=== PATIENT | female | born 1950 | race Caucasian/White ===

== ENCOUNTER 2020-10-01 15:27 | Inpatient (IN) | payer MEDICARE, MEDICAID ==
[~2020-10-01] VITALS: Ht 160 cm; Wt 62.8 kg
[2020-10-01] MEDS ORDERED: SODIUM CHLORIDE 0.9% 1,000 ML IV ONE ×3 (15:45)
[2020-10-01 18:12] LABS: Eosinophils # (auto) 0.3 10 ^3/uL (0-0.8); Eosinophils % (auto) 2.6 % (0.0-7.0); Hemoglobin 11.5 g/dL (12.2-16.2); Lymphocytes # (auto) 2.1 10 ^3/uL (0.4-5.4); Monocytes # (auto) 0.5 10 ^3/uL (0-1.3); Monocytes % (auto) 4.4 % (0.0-12.0)
[2020-10-01 18:14] LABS: Anion Gap 6 (5-15); Basophils # (auto) 0.1 10 ^3/uL (0-0.2); Basophils % (auto) 1.2 % (0.0-2.0); Blood Urea Nitrogen 11 mg/dL (7-18); Carbon Dioxide 25 mmol/L (21-32); Chloride 108 mmol/L (98-107); Glucose 80 mg/dL (74-106); Lymphocytes % (auto) 18.5 % (10.0-50.0); Mean Corpuscular Hgb Conc. 33.9 g/dL (32.0-36.0); Mean Corpuscular Volume 88.4 fL (80.0-100.0); Neutrophils # (auto) 8.3 10 ^3/uL (1.6-8.6); Neutrophils % (auto) 73.3 % (37.0-80.0); Nucleated Red Blood Cells % 0.1 %; Potassium 3.7 mmol/L (3.5-5.1); Red Blood Cells 3.84 10^6/uL (4.0-5.20); Red Cell Distribution Width 17.1 % (11.8-14.3); Sodium 139 mmol/L (136-145); White Blood Cell 11.3 10^3/uL (4.4-10.8)
[2020-10-01 18:19] LABS: Alanine Aminotransferase 16 U/L (13-56); Alkaline Phosphatase 91 U/L (45-117); Aspartate Aminotransferase 16 U/L (15-37); BUN/Creatinine Ratio 12.1; Bilirubin, Total 0.4 mg/dL (0.2-1.0); GFR African American 79 mL/min; GFR Non-African American 65 mL/min; Total Protein 6.7 g/dL (6.4-8.2)
[2020-10-01] MEDS ORDERED: ONDANSETRON HCL 4 MG/2 ML VIAL IV ONE (21:00)
[2020-10-01] MEDS ORDERED: MORPHINE SULFATE 4 MG/ML SYR/VIAL IV ONE (21:00)
[2020-10-01] MEDS ORDERED: MORPHINE SULFATE INJECTION 2 MG/ML SYRG IV PRN (22:30)
[2020-10-01] MEDS ORDERED: DOCUSATE SOD 100 MG CAP PO PRN (22:30)
[2020-10-01] MEDS ORDERED: ACETAMINOPHEN 325 MG TAB PO PRN (22:30)
[2020-10-01] MEDS ORDERED: hydrALAZINE HCL 20 MG/ML VL IV PRN (22:30)
[2020-10-01] MEDS ORDERED: ONDANSETRON HCL 4 MG/2 ML VIAL IV PRN (22:30)
[2020-10-01] MEDS ORDERED: NITROGLYCERIN 0.4 MG SL TAB SL PRN (22:30)
[2020-10-02] MEDS: MORPHINE SULFATE INJECTION 2 MG/ML SYRG IV PRN ×2 (01:18→08:11)
[2020-10-02 01:48] VITALS: BP 142/57
[2020-10-02 05:00] VITALS: BP 145/69
[2020-10-02] MEDS ORDERED: TICA90TA PO (05:21)
[2020-10-02] MEDS ORDERED: TRAZ50TA2 PO (05:21)
[2020-10-02] MEDS ORDERED: HYDR500C PO (05:21)
[2020-10-02] MEDS ORDERED: GABA-339 PO (05:21)
[2020-10-02] MEDS ORDERED: TRAZ100T3 PO (05:21)
[2020-10-02] MEDS ORDERED: METO25TA93 PO (05:21)
[2020-10-02] MEDS ORDERED: ASPI-543 PO (05:21)
[2020-10-02] MEDS ORDERED: LORA-622 PO (05:21)
[2020-10-02] MEDS ORDERED: ATO40T PO (05:21)
[2020-10-02] MEDS: SODIUM CHLOR 0.9% PF (SALINE LOCK) 10ML VIAL/SYR IV SCH ×3 (06:16→21:16)
[2020-10-02 06:36] LABS: Basophils # (auto) 0.1 10 ^3/uL (0-0.2); Eosinophils # (auto) 0.4 10 ^3/uL (0-0.8); Mean Corpuscular Volume 87.5 fL (80.0-100.0); Monocytes # (auto) 0.5 10 ^3/uL (0-1.3); Nucleated Red Blood Cells % 0.1 %
[2020-10-02 06:41] LABS: Eosinophils % (auto) 3.6 % (0.0-7.0); Hematocrit 35.9 % (36.0-46.0); Hemoglobin 12.5 g/dL (12.2-16.2); Mean Corpuscular Hemoglobin 30.4 pg (28.0-32.0); Mean Corpuscular Hgb Conc. 34.7 g/dL (32.0-36.0); Monocytes % (auto) 4.6 % (0.0-12.0); Neutrophils # (auto) 7.2 10 ^3/uL (1.6-8.6); Neutrophils % (auto) 70.8 % (37.0-80.0); Red Blood Cells 4.11 10^6/uL (4.0-5.20); Red Cell Distribution Width 17.5 % (11.8-14.3); White Blood Cell 10.2 10^3/uL (4.4-10.8)
[2020-10-02 07:15] LABS: BUN/Creatinine Ratio 18.5; Calcium 8.4 mg/dL (8.5-10.1)
[2020-10-02 07:17] LABS: Bilirubin, Total 0.3 mg/dL (0.2-1.0); Total Protein 6.8 g/dL (6.4-8.2)
[2020-10-02] MEDS ORDERED: cefTRIAXone 1GM/50ML D5W 50 ML IV SCH (09:00)
[2020-10-02] MEDS ORDERED: ZINC SULFATE 220mg CAP or TAB PO SCH (10:00)
[2020-10-02] MEDS ORDERED: FAMOTIDINE (10MG/ML) 2ML VL IV SCH (10:00)
[2020-10-02] MEDS ORDERED: ASCORBIC ACID 500 MG TAB PO SCH (10:00)
[2020-10-02] MEDS: ENOXAPARIN SOD 40 MG/0.4 ML SYRINGE SC SCH (10:02)
[2020-10-02] MEDS: MULTIPLE VITAMIN TAB PO SCH (10:02)
[2020-10-02 10:08] VITALS: BP 119/88
[2020-10-02 16:47] VITALS: BP 154/71
[2020-10-02 18:16] LABS: Urine WBC None Seen /hpf (0 - 5)
[2020-10-02 18:27] LABS: Urine Bacteria NONE SEEN /hpf (None Seen); Urine Blood Negative /uL (Negative)
[2020-10-02] MEDS: HYDROcodone-ACET 5/325MG TAB PO PRN (18:32)
[2020-10-02] MEDS: hydroxyUREA 500 MG CAP PO SCH (21:16)
[2020-10-02 22:00] VITALS: BP 157/87
[2020-10-03] MEDS: HYDROcodone-ACET 5/325MG TAB PO PRN ×3 (00:24→09:58)
[2020-10-03 05:00] VITALS: BP 108/69
[2020-10-03] MEDS: SODIUM CHLOR 0.9% PF (SALINE LOCK) 10ML VIAL/SYR IV SCH (05:32)
[2020-10-03 09:00] VITALS: BP 139/72
[2020-10-03] MEDS: hydroxyUREA 500 MG CAP PO SCH (09:53)
[2020-10-03] MEDS: MULTIPLE VITAMIN TAB PO SCH (09:53)
[2020-10-03] MEDS: ENOXAPARIN SOD 40 MG/0.4 ML SYRINGE SC SCH (09:59)
[2020-10-03 11:27] VITALS: BP 139/72
[2020-10-03 12:52] VITALS: BP 146/77
== END 2020-10-03 13:00 | disposition home or self-care (01) | DRG 563 ==
LOC: ER 15:27 → EDBD 15:27 → OVERFLOW 22:24 → CENTRAL 23:19
PROVIDERS: ADMIT Nurse Practitioner Family; ATTEND Internal Medicine
PROC: 2W3HX1Z Immobilization of Left Thumb using Splint (ICD-10-PCS; principal; 2020-10-03)
DX: S82.832A Other fracture of upper and lower end of left fibula, initial encounter for closed fracture (principal); C94.6 Myelodysplastic disease, not elsewhere classified; R55 Syncope and collapse; S62.502A Fracture of unspecified phalanx of left thumb, initial encounter for closed fracture; E88.09 Other disorders of plasma-protein metabolism, not elsewhere classified; F17.210 Nicotine dependence, cigarettes, uncomplicated; I10 Essential (primary) hypertension; Z20.822 Contact with and (suspected) exposure to COVID-19; I25.10 Atherosclerotic heart disease of native coronary artery without angina pectoris; W18.39XA Other fall on same level, initial encounter; Z95.5 Presence of coronary angioplasty implant and graft; Y93.89 Activity, other specified; Y92.89 Other specified places as the place of occurrence of the external cause; Y99.8 Other external cause status
CPT/HCPCS: 36415; 70450; 71045; 73100; 73130; 73610; 73620; 80053; 81001; 84484; 85025; 87426; 93005; 93306; 96361; 96374; 96375; 99291; G0378; J0696; J2405; J3490

== ENCOUNTER 2021-07-22 08:12 | Emergency (ER) | payer OTHER, MEDICAID ==
[~2021-07-22] VITALS: Ht 160 cm; Wt 56.7 kg
[~2021-07-22 08:12] MED LIST: ASPI-543 PO; ATO40T PO; GABA-339 PO; HYDR500C PO; LORA-622 PO; METO25TA93 PO; TICA90TA PO; TRAZ100T3 PO; TRAZ50TA2 PO
[2021-07-22] MEDS ORDERED: ceFAZolin 1GM/50ML 50 ML IV ONE (09:30)
[2021-07-22] MEDS ORDERED: LIDOCAINE 1% (LOCAL ANESTH.) PF 5ml SDV ID ONE (09:30)
[2021-07-22 09:44] LABS: Eosinophils # (auto) 0.1 10 ^3/uL (0-0.8); Mean Corpuscular Hgb Conc. 32.9 g/dL (32.0-36.0); Red Blood Cells 4.24 10^6/uL (4.0-5.20); Red Cell Distribution Width 14.8 % (11.8-14.3)
[2021-07-22 09:46] LABS: Basophils # (auto) 0.2 10 ^3/uL (0-0.2); Basophils % (auto) 0.9 % (0.0-2.0); Eosinophils % (auto) 0.6 % (0.0-7.0); Hematocrit 39.5 % (36.0-46.0); Lymphocytes # (auto) 2.3 10 ^3/uL (0.4-5.4); Lymphocytes % (auto) 12.3 % (10.0-50.0); Mean Corpuscular Hemoglobin 30.6 pg (28.0-32.0); Mean Corpuscular Volume 93.2 fL (80.0-100.0); Monocytes # (auto) 0.8 10 ^3/uL (0-1.3); Monocytes % (auto) 4.4 % (0.0-12.0); Neutrophils # (auto) 15.3 10 ^3/uL (1.6-8.6); Neutrophils % (auto) 81.8 % (37.0-80.0); White Blood Cell 18.7 10^3/uL (4.4-10.8)
[2021-07-22 10:05] LABS: INR 1.06 (0.9-1.15); Partial Thromboplastin Time 26.3 sec (23.6-33.0)
[2021-07-22] MEDS ORDERED: ONDANSETRON HCL 4 MG/2 ML VIAL IV ONE (10:15)
[2021-07-22] MEDS ORDERED: MORPHINE SULFATE 4 MG/ML SYR/VIAL IV ONE (10:15)
[2021-07-22] MEDS ORDERED: TETANUS-DIPTH-ACEL PERTUSSIS 0.5ML SYR Tdap IM ONE (10:45)
[2021-07-22] MEDS ORDERED: AMOX500T86 PO (11:13)
[2021-07-22 11:45] VITALS: BP 133/56
== END 2021-07-22 11:58 | disposition left against medical advice (07) ==
LOC: ER 08:12
DX: S01.81XA Laceration without foreign body of other part of head, initial encounter (principal); S01.85XA Open bite of other part of head, initial encounter; K04.7 Periapical abscess without sinus; I10 Essential (primary) hypertension; I25.2 Old myocardial infarction; Z90.49 Acquired absence of other specified parts of digestive tract; Z90.710 Acquired absence of both cervix and uterus; Z90.89 Acquired absence of other organs; Z79.82 Long term (current) use of aspirin; Z79.2 Long term (current) use of antibiotics; Z79.899 Other long term (current) drug therapy; W54.0XXA Bitten by dog, initial encounter; Y93.89 Activity, other specified; Y92.89 Other specified places as the place of occurrence of the external cause; Y99.8 Other external cause status
CPT/HCPCS: 12014; 36415; 70486; 85025; 85610; 85730; 90471; 90715; 96365; 96375; 99285; J0690; J2270; J2405

== ENCOUNTER 2021-08-24 11:49 | Emergency (ER) | payer OTHER, MEDICAID ==
[~2021-08-24] VITALS: Ht 160 cm; Wt 125.0 kg
[~2021-08-24 11:49] MED LIST changes: +AMOX500T86 PO
[2021-08-24] MEDS ORDERED: SODIUM CHLORIDE 0.9% 1,000 ML IV ONE (12:45)
[2021-08-24 13:42] LABS: Basophils # (auto) 0.2 10 ^3/uL (0-0.2); Basophils % (auto) 1.2 % (0.0-2.0); Lymphocytes # (auto) 1.8 10 ^3/uL (0.4-5.4); Monocytes # (auto) 1.1 10 ^3/uL (0-1.3); Neutrophils % (auto) 80.5 % (37.0-80.0)
[2021-08-24 13:45] LABS: Eosinophils # (auto) 0.3 10 ^3/uL (0-0.8); Eosinophils % (auto) 1.6 % (0.0-7.0); Hematocrit 37.7 % (36.0-46.0); Lymphocytes % (auto) 10.3 % (10.0-50.0); Mean Corpuscular Hemoglobin 28.4 pg (28.0-32.0); Mean Corpuscular Hgb Conc. 31.9 g/dL (32.0-36.0); Mean Corpuscular Volume 89.2 fL (80.0-100.0); Monocytes % (auto) 6.4 % (0.0-12.0); Neutrophils # (auto) 13.8 10 ^3/uL (1.6-8.6); Red Blood Cells 4.22 10^6/uL (4.0-5.20); Red Cell Distribution Width 15.3 % (11.8-14.3); White Blood Cell 17.1 10^3/uL (4.4-10.8)
[2021-08-24 14:01] LABS: Albumin 3.4 g/dL (3.4-5.0); Calcium 8.5 mg/dL (8.5-10.1); Potassium 3.9 mmol/L (3.5-5.1)
[2021-08-24 14:06] LABS: BUN/Creatinine Ratio 14.1; Bilirubin, Total 0.7 mg/dL (0.2-1.0)
[2021-08-24 14:08] LABS: INR 1.03 (0.9-1.15); Partial Thromboplastin Time 29.2 sec (24.6-33.4)
[2021-08-24] MEDS ORDERED: HYDR-4902 PO (15:08)
[2021-08-24] MEDS ORDERED: ONDANSETRON HCL 4 MG/2 ML VIAL IV ONE (15:15)
[2021-08-24] MEDS ORDERED: MORPHINE SULFATE 4 MG/ML SYR/VIAL IV ONE (15:15)
[2021-08-24 16:04] VITALS: BP 136/84
== END 2021-08-24 16:05 | disposition home or self-care (01) ==
LOC: ER 11:49
DX: S82.52XA Displaced fracture of medial malleolus of left tibia, initial encounter for closed fracture (principal); R55 Syncope and collapse; I10 Essential (primary) hypertension; I25.2 Old myocardial infarction; I25.10 Atherosclerotic heart disease of native coronary artery without angina pectoris; Z90.49 Acquired absence of other specified parts of digestive tract; Z90.710 Acquired absence of both cervix and uterus; Z90.89 Acquired absence of other organs; Z79.82 Long term (current) use of aspirin; Z79.2 Long term (current) use of antibiotics; Z79.899 Other long term (current) drug therapy; W18.39XA Other fall on same level, initial encounter; Y93.89 Activity, other specified; Y92.89 Other specified places as the place of occurrence of the external cause; Y99.8 Other external cause status
CPT/HCPCS: 29515; 36415; 71046; 73600; 80053; 83735; 85025; 85610; 85730; 96361; 96374; 96375; 99284; J2270; J2405; J7030

== ENCOUNTER 2021-08-26 07:53 | Inpatient (IN) | payer OTHER, MEDICAID ==
[~2021-08-26] VITALS: Ht 160 cm; Wt 64.0 kg
[~2021-08-26 07:53] MED LIST changes: +HYDR-4902 PO
[2021-08-26 08:58] LABS: Mean Corpuscular Hgb Conc. 32.3 g/dL (32.0-36.0)
[2021-08-26 09:00] LABS: Hematocrit 36.7 % (36.0-46.0); Hemoglobin 11.9 g/dL (12.2-16.2); Mean Corpuscular Hemoglobin 28.8 pg (28.0-32.0); Mean Corpuscular Volume 89.3 fL (80.0-100.0); Red Blood Cells 4.11 10^6/uL (4.0-5.20); Red Cell Distribution Width 15.4 % (11.8-14.3); White Blood Cell 16.7 10^3/uL (4.4-10.8)
[2021-08-26 09:11] LABS: Band Neutrophils % (manual) 0; Basophils % (manual) 0 (0.0-2.0); Blast Cells 0; Metamyelocytes % 0; Myelocytes % 0; Promyelocytes % 0; Reactive Lymphocytes 0
[2021-08-26 09:12] LABS: INR 0.99 (0.9-1.15); Partial Thromboplastin Time 28.1 sec (24.6-33.4)
[2021-08-26 09:17] LABS: Eosinophils % (manual) 3 (0-7); Lymphocytes % (manual) 8 (10.0-50.0); Monocytes % (manual) 9 (0-12)
[2021-08-26 11:28] LABS: Albumin 3.3 g/dL (3.4-5.0); BUN/Creatinine Ratio 12.8; Calcium 9.1 mg/dL (8.5-10.1); Potassium 4.4 mmol/L (3.5-5.1)
[2021-08-26 11:31] LABS: Bilirubin, Total 0.5 mg/dL (0.2-1.0); Total Protein 7.2 g/dL (6.4-8.2)
[2021-08-26] MEDS ORDERED: IOHEXOL 350 MG/ML 100ML IJ ONE (11:40)
[2021-08-26] MEDS ORDERED: LORazepam 2MG/ML-1ML VIAL IV ONE (12:45)
[2021-08-26] MEDS ORDERED: ALPRAZolam 0.5 MG TAB PO ONE (13:00)
[2021-08-26] MEDS ORDERED: ONDANSETRON HCL 4 MG/2 ML VIAL IV ONE (15:45)
[2021-08-26] MEDS ORDERED: MORPHINE SULFATE 4 MG/ML SYR/VIAL IV ONE (15:45)
[2021-08-26] MEDS ORDERED: ONDANSETRON HCL 4 MG/2 ML VIAL IV PRN (17:15)
[2021-08-26] MEDS ORDERED: ACETAMINOPHEN 325 MG TAB PO PRN (17:15)
[2021-08-26] MEDS ORDERED: DOCUSATE SOD 100 MG CAP PO PRN (17:15)
[2021-08-26] MEDS ORDERED: MORPHINE SULFATE INJ 2 MG/ml SYRG IV PRN (17:15)
[2021-08-26] MEDS ORDERED: HYDROmorphone HCL 2 MG/ML VL/or syr IV PRN (17:15)
[2021-08-26] MEDS ORDERED: NITROGLYCERIN 0.4 MG SL TAB SL PRN (17:15)
[2021-08-26] MEDS: cefTRIAXone 1GM/50ML D5W 50 ML IV SCH (17:45)
[2021-08-26] MEDS: AZITHROMYCIN 500MG/ 250ML 250 ML IV SCH (18:10)
[2021-08-26 21:38] VITALS: BP 125/68
[2021-08-26] MEDS: SODIUM CHLOR 0.9% PF (SALINE LOCK) 10ML VIAL/SYR IV SCH (22:01)
[2021-08-26 22:21] LABS: Urine Bacteria NONE SEEN /hpf (None Seen); Urine Blood Negative /uL (Negative); Urine Specific Gravity 1.034 (1.001-1.035); Urine WBC 19 /hpf (0 - 5)
[2021-08-27] MEDS: SODIUM CHLOR 0.9% PF (SALINE LOCK) 10ML VIAL/SYR IV SCH ×3 (05:32→20:07)
[2021-08-27 08:58] VITALS: BP 148/76
[2021-08-27] MEDS: cefTRIAXone 1GM/50ML D5W 50 ML IV SCH (10:09)
[2021-08-27] MEDS ORDERED: FLUO20CA90 PO (10:30)
[2021-08-27] MEDS ORDERED: BACL10TA PO (10:30)
[2021-08-27] MEDS ORDERED: OXYC-963 (10:30)
[2021-08-27] MEDS: OXYCODONE W/ ACETAMINOPHEN 5/325MG TABLET PO PRN ×2 (11:14→19:57)
[2021-08-27] MEDS: AZITHROMYCIN 500MG/ 250ML 250 ML IV SCH (11:14)
[2021-08-27 13:00] VITALS: BP 142/79
[2021-08-27 13:32] LABS: Basophils # (auto) 0.1 10 ^3/uL (0-0.2); Basophils % (auto) 0.4 % (0.0-2.0); Eosinophils # (auto) 0.1 10 ^3/uL (0-0.8); Eosinophils % (auto) 0.6 % (0.0-7.0); Lymphocytes # (auto) 1.3 10 ^3/uL (0.4-5.4); Monocytes # (auto) 0.8 10 ^3/uL (0-1.3)
[2021-08-27 13:35] LABS: Hematocrit 38.3 % (36.0-46.0); Hemoglobin 12.3 g/dL (12.2-16.2); Lymphocytes % (auto) 7.4 % (10.0-50.0); Mean Corpuscular Hemoglobin 28.5 pg (28.0-32.0); Mean Corpuscular Hgb Conc. 32.1 g/dL (32.0-36.0); Monocytes % (auto) 4.3 % (0.0-12.0); Neutrophils # (auto) 15.9 10 ^3/uL (1.6-8.6); Neutrophils % (auto) 87.3 % (37.0-80.0); Red Cell Distribution Width 15.6 % (11.8-14.3); White Blood Cell 18.2 10^3/uL (4.4-10.8)
[2021-08-27 17:00] VITALS: BP 159/90
[2021-08-27] MEDS ORDERED: ASPirin 81 mg TAB PO ONE (17:30)
[2021-08-27] MEDS: METOPROLOL TARTRATE 25 MG TAB PO SCH (17:59)
[2021-08-27 21:49] VITALS: BP 158/79
[2021-08-28 04:46] VITALS: BP 153/84
[2021-08-28] MEDS: SODIUM CHLOR 0.9% PF (SALINE LOCK) 10ML VIAL/SYR IV SCH (05:56)
[2021-08-28] MEDS: OXYCODONE W/ ACETAMINOPHEN 5/325MG TABLET PO PRN (06:21)
[2021-08-28 07:10] LABS: Basophils # (auto) 0.1 10 ^3/uL (0-0.2); Hemoglobin 12.4 g/dL (12.2-16.2); Lymphocytes # (auto) 1.7 10 ^3/uL (0.4-5.4); Red Cell Distribution Width 15.4 % (11.8-14.3); White Blood Cell 16.8 10^3/uL (4.4-10.8)
[2021-08-28 07:15] LABS: Basophils % (auto) 0.9 % (0.0-2.0); Eosinophils # (auto) 0.4 10 ^3/uL (0-0.8); Eosinophils % (auto) 2.2 % (0.0-7.0); Hematocrit 37.8 % (36.0-46.0); Mean Corpuscular Hgb Conc. 32.7 g/dL (32.0-36.0); Mean Corpuscular Volume 88.6 fL (80.0-100.0); Monocytes # (auto) 0.7 10 ^3/uL (0-1.3); Monocytes % (auto) 4.3 % (0.0-12.0); Neutrophils # (auto) 13.9 10 ^3/uL (1.6-8.6); Neutrophils % (auto) 82.6 % (37.0-80.0); Red Blood Cells 4.27 10^6/uL (4.0-5.20)
[2021-08-28 07:16] LABS: BUN/Creatinine Ratio 17.9; Calcium 9.4 mg/dL (8.5-10.1); Magnesium 2.2 mg/dL (1.6-2.6); Potassium 5.4 mmol/L (3.5-5.1)
[2021-08-28 09:00] VITALS: BP 161/69
[2021-08-28] MEDS ORDERED: ASPirin 81 mg TAB PO SCH (10:00)
[2021-08-28] MEDS: METOPROLOL TARTRATE 25 MG TAB PO SCH (10:34)
[2021-08-28] MEDS: cefTRIAXone 1GM/50ML D5W 50 ML IV SCH (10:35)
[2021-08-28 13:00] VITALS: BP 167/87
[2021-08-28] MEDS: AZITHROMYCIN 500MG/ 250ML 250 ML IV SCH (13:08)
== END 2021-08-28 13:45 | disposition left against medical advice (07) | DRG 194 ==
LOC: ER 07:53 → TELE 17:15 → TELE-CENTR 21:45
PROVIDERS: ADMIT Internal Medicine; ATTEND Internal Medicine
DX: J18.9 Pneumonia, unspecified organism (principal); C92.10 Chronic myeloid leukemia, BCR/ABL-positive, not having achieved remission; D75.839 Thrombocytosis, unspecified; J43.9 Emphysema, unspecified; S82.842A Displaced bimalleolar fracture of left lower leg, initial encounter for closed fracture; Z20.822 Contact with and (suspected) exposure to COVID-19; Z53.29 Procedure and treatment not carried out because of patient's decision for other reasons; I50.9 Heart failure, unspecified; W18.39XA Other fall on same level, initial encounter; I25.10 Atherosclerotic heart disease of native coronary artery without angina pectoris; I11.0 Hypertensive heart disease with heart failure; I25.2 Old myocardial infarction; Z82.0 Family history of epilepsy and other diseases of the nervous system; Z86.711 Personal history of pulmonary embolism; Z87.891 Personal history of nicotine dependence; Z90.710 Acquired absence of both cervix and uterus; Z90.49 Acquired absence of other specified parts of digestive tract; Y93.89 Activity, other specified; Y92.89 Other specified places as the place of occurrence of the external cause; Y99.8 Other external cause status
CPT/HCPCS: 36415; 71045; 71275; 80048; 80053; 81001; 83735; 83880; 84484; 85007; 85025; 85027; 85379; 85610; 85730; 87040; 87070; 87077; 87186; 87205; 93005; 93306; 96365; 96368; 96375; 97163; G0378; J0696; J2405

== ENCOUNTER → 2022-06-27 | Outpatient (CLI) | payer OTHER, MEDICAID ==
[~2022-06-27] MED LIST changes: -AMOX500T86 PO; +BACL10TA PO; +FLUO20CA90 PO; +OXYC-963; -TRAZ100T3 PO
[2022-06-27 12:12] LABS: Mean Corpuscular Hemoglobin 25.2 pg (28.0-32.0); Red Cell Distribution Width 19.8 % (11.8-14.3)
[2022-06-27 12:14] LABS: Basophils # (auto) 0.2 10 ^3/uL (0-0.2); Basophils % (auto) 1.5 % (0.0-2.0); Eosinophils # (auto) 0.5 10 ^3/uL (0-0.8); Eosinophils % (auto) 3.5 % (0.0-7.0); Hematocrit 46.9 % (36.0-46.0); Hemoglobin 15.3 g/dL (12.2-16.2); Lymphocytes # (auto) 1.7 10 ^3/uL (0.4-5.4); Lymphocytes % (auto) 10.9 % (10.0-50.0); Mean Corpuscular Hgb Conc. 32.6 g/dL (32.0-36.0); Mean Corpuscular Volume 77.1 fL (80.0-100.0); Monocytes # (auto) 0.6 10 ^3/uL (0-1.3); Monocytes % (auto) 3.9 % (0.0-12.0); Neutrophils # (auto) 12.1 10 ^3/uL (1.6-8.6); Neutrophils % (auto) 80.2 % (37.0-80.0); Red Blood Cells 6.08 10^6/uL (4.0-5.20); White Blood Cell 15.1 10^3/uL (4.4-10.8)
[2022-06-27 13:42] LABS: Potassium 4.3 mmol/L (3.5-5.1)
[2022-06-27 13:47] LABS: Free T4 (Free Thyroxine) 0.7 ng/dL (0.89-1.76)
[2022-06-27 14:04] LABS: BUN/Creatinine Ratio 11.2 (10.0-20.0); Bilirubin, Total 0.4 mg/dL (0.2-1.0); CRP High Sensitivity 0.46 mg/dL (< 0.3); Calcium 9.4 mg/dL (8.5-10.1); Phosphorus 3.6 mg/dL (2.5-4.90); Total Protein 7.8 g/dL (6.4-8.2)
== END | disposition home or self-care (01) ==
LOC: LAB 11:30
PROVIDERS: ATTEND Internal Medicine
DX: I10 Essential (primary) hypertension (principal); Z79.899 Other long term (current) drug therapy
CPT/HCPCS: 36415; 80053; 80061; 80069; 82306; 82607; 83036; 84439; 84443; 85025; 85652; 86141; 86200

== ENCOUNTER 2023-07-09 20:37 | Emergency (ER) | payer OTHER, MEDICAID ==
[~2023-07-09] VITALS: Ht 160 cm; Wt 62.2 kg
[~2023-07-09 20:37] MED LIST changes: -ATO40T PO; +ATOR-507 PO; -HYDR500C PO; +HYDR500C3 PO; +TRAZ-227 PO; -TRAZ50TA2 PO
[2023-07-09] MEDS ORDERED: MORP15TA PO (21:32)
[2023-07-09 22:30] VITALS: PULSE 97; RESP 20; TEMP 98.4; O2SAT 96
[2023-07-09 22:37] VITALS: BP 156/95; PULSE 97; RESP 20
[2023-07-09] MEDS: MORPHINE SULFATE 4 MG/ML SYR/VIAL IM ONE (22:37)
== END 2023-07-09 22:44 | disposition home or self-care (01) ==
LOC: ER 20:37
DX: F11.93 Opioid use, unspecified with withdrawal (principal); I10 Essential (primary) hypertension; I25.10 Atherosclerotic heart disease of native coronary artery without angina pectoris; I25.2 Old myocardial infarction; Z85.9 Personal history of malignant neoplasm, unspecified; Z98.890 Other specified postprocedural states; Z79.899 Other long term (current) drug therapy
CPT/HCPCS: 96372; 99283; J2270

== ENCOUNTER 2024-02-05 03:42 | Inpatient (IN) | payer OTHER, MEDICAID ==
[~2024-02-05] VITALS: Ht 162.6 cm; Wt 61.5 kg
[~2024-02-05 03:42] MED LIST changes: +FLUO-470 PO; -FLUO20CA90 PO; +MORP15TA PO
--- NOTE | 2024-02-05 04:05 | ECG ---
[facility] Test Date: 2024-02-05 Test Time: 03:49:23 Pat Name: RAMESH LEHMAN Department: ER Room: Gender: F Rackman: TEE : 1950 Requested By: EMERGENCY EMERGENCY Order Number: [id number] Reading MD: James Huertas Measurements Intervals [place] Rate: 106 P: 0 MO: 0 QRS: 63 QRSD: 92 T: -43 QT: 370 QTc: 492 Interpretive Statements Likely sinus tachycardia Borderline repol abnrm, inferolateral leads Borderline prolonged QT interval Electronically Signed On 02-05-2024 9:03:59 PST by James Huertas Please click the below link to view image of tracing.
--- NOTE | 2024-02-05 04:14 | ED.PDOC ---
GI ASSESSMENT HPI Comments 73 year old female presents to the ED with a chief complaint of epigastric pain onset last night around 21:00. Patient states she was trying to sleep, pain is 8/10, describes it as dull/sharp and radiates to her back which worsens with inhalation. Patient is also experiencing nausea, vomiting. Past medical history of CAD, cancer, HTN, [place]. Denies fever, chills, headache, chest pain, shortness of breath, dizziness, diarrhea, constipation. No other symptoms or modifying factors present at this time. Chief Complaint: Chest Pain Time Seen by MD: 03:50 Primary Care Provider: EDMUND Reviewed Notes: Medications, Allergies Allergies: Coded Allergies: NO KNOWN ALLERGIES (Unverified , 10/01/20) Home Meds Active Scripts Morphine Sulfate (Morphine Sulfate) 15 Mg Tab, 1 TAB PO BID PRN, #60 TAB Prov:NEHAL MIRELES DO 07/09/23 Hydrocodone-Acetaminophen (Hydrocodone Bitartrate/AC 5-325 mg) 1 Tab Tab, 1 TAB PO Q6HP PRN for 5 Days, #20 TAB Prov:MARICARMEN PITTS MD 08/24/21 Reported Medications Baclofen (Baclofen) 10 Mg Tab, 1 TAB PO BID 08/27/21 Oxycodone W/ Acetaminophen (Oxycodone/Acetaminophen 10-300 mg) 1 Tab Tab 08/27/21 Fluoxetine HCl (Fluoxetine HCl) 20 Mg Cap, 2 CAP PO QAM 08/27/21 Trazodone Hcl (Trazodone Hcl) 50 Mg Tab, 200 MG PO HS, TAB 10/02/20 Hydroxyurea (Hydroxyurea) 500 Mg Cap, 500 MG PO DAILY, MG 10/02/20 Loratadine (Claritin) 10 Mg Tab, 1 TAB PO DAILY, #30 TAB 5 Refills 10/02/20 Aspirin (Aspir-Low) 81 Mg Tab, 81 MG PO DAILY for 30 Days, MG 10/02/20 Atorvastatin Calcium (Lipitor) 40 Mg Tab, 1 TAB PO DAILY, #30 TAB 5 Refills 10/02/20 Metoprolol Succinate (Metoprolol Succinate Er) 25 Mg Tab, 12.5 MG PO DAILY, TAB 10/02/20 Ticagrelor Base (BRILINTA) 90 Mg Tab, 90 MG PO BID, TAB 10/02/20 Gabapentin (Gabapentin) 600 Mg Tab, 600 MG PO TID for 30 Days, MG 10/02/20 Information Source: Patient Mode of Arrival: Ambulatory Timing: Hours Duration: Since onset Prehospital treatment: None Quality: Sharp Severity: Moderate Recent: None Recent Hx of: None Pain Location: Epigastric Modifying Factors: Nothing Associated sign and symptoms: Nausea, Vomiting, Abdominal Pain Past Medical History PAST MEDICAL HISTORY: CAD, Cancer, HTN, [place] Surgical History: Cholecystectomy, , Hysterectomy, Tonsillectomy 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 Family History Family History: No family hx of Cancer, No family hx of DM Social History Smoker: Non-Smoker Alcohol: Denies ETOH Use Drugs: Denies Drug Use Lives In: Home Constitutional: denies: chills, diaphoresis, fatigue, fever, malaise, sweats, weakness, others EENTM: denies: blurred vision, double vision, ear bleeding, ear discharge, ear drainage, ear pain, ear ringing, eye pain, eye redness, hearing loss, mouth pain, mouth swelling, nasal discharge, nose bleeding, nose congestion, nose pain, photophobia, tearing, throat pain, throat swelling, voice changes, others Respiratory: denies: cough, hemoptysis, orthopnea, SOB at rest, shortness of breath, SOB with excertion, stridor, wheezing, others Cardiovascular: denies: chest pain, dizzy spells, diaphoresis, Dyspnea on exertion, edema, irregular heart beat, left arm pain, lightheadedness, palpitations, PND, syncope, others Gastrointestinal: reports: abdominal pain (epigastric ), nausea, vomiting; denies: abdomen distended, blood streaked bowels, constipated, diarrhea, dysphagia, difficulty swallowing, hematemesis, melena, poor appetite, poor fluid intake, rectal bleeding, rectal pain, others Genitourinary: denies: abnormal vagina bleeding, burning, dyspareunia, dysuria, flank pain, frequency, hematuria, incontinence, pain, , vagina discharge, urgency, others Neurological: denies: dizziness, fainting, headache, left sided numbness, left sided weakness, numbness, paresthesia, pre-existing deficit, right sided numbness, right sided weakness, seizure, speech problems, tingling, tremors, weakness, others Musculoskeletal: reports: back pain; denies: gout, joint pain, joint swelling, muscle pain, muscle stiffness, neck pain, others Integumetry: denies: bruises, change in color, change in hair/nails, dryness, laceration, lesions, lumps, rash, wounds, others Allergic/Immunocompromised: denies: Difficulty Healing, Frequent Infections, Hives, Itching, others Hematologic/Lymphatic: denies: anemia, blood clots, easy bleeding, easy bruising, swollen glands, others Endocrine: denies: excessive hunger, excessive sweating, excessive thirst, excessive urination, flushing, intolerance to cold, intolerance to heat, unexplained weight gain, unexplained weight loss, others Psychiatric: denies: anxiety, bipolar disorder, depression, hopeless, panic disorder, schizophrenia, sleepless, suicidal, others All Other Systems: Reviewed and Negative Physical Exam General Appearance: Moderate Distress, Normal HEENT: Normal ENT Inspection, Pharynx Normal, TMs Normal Neck: Full Range of Motion, Non-Tender, Normal, Normal Inspection Respiratory: Chest Non-Tender, Lungs Clear, No Accessory Muscle Use, No Respiratory Distress, Normal Breath Sounds Cardiovascular: No Edema, No JVD, No Murmur, No Gallop, Normal Peripheral Pulses, Regular Rate/Rhythm Breast Exam: Deferred Gastrointestinal: No Organomegaly, No Pulsatile Mass, Normal Bowel Sounds, Soft , Tenderness Genitalia: Deferred Pelvic: Deferred Rectal: Deferred Extremities: No calf tenderness, Normal capillary refill, Normal inspection, Normal range of motion, Non-tender, No pedal edema Musculoskeletal : Apperance: Normal Neurologic: Alert, support associate II-XII nml as Tested, No Motor Deficits, Normal Affect, Normal Mood, No Sensory Deficits Cerebellar Function: Normal Reflexes: Normal Skin: Dry, Normal Color, Warm Lymphatic: No Adenopathy Was a procedure done? Was a procedure done?: No GI differential Dx Differential Diagnosis: AAA, Appendicitis, Cholecystitis, Gastritis/PUD, Gastroenteritis, GI hemorrhage, Inflammatory BD, Pancreatitis, Other X-Ray, Labs, Meds, VS Vital Signs Date Time Temp Pulse Resp B/P (MAP) Pulse Ox O2 Delivery O2 Flow Rate FiO2 02/05/24 10:16 89 18 94 Room Air* 0 21 02/05/24 10:15 97.8 89 18 93/45 (61) 94 97.8 02/05/24 10:00 89 93/45 02/05/24 08:59 98.0 91 15 99/65 (76) 96 98.0 02/05/24 06:53 104 16 124/63 (83) 97 02/05/24 06:52 104 16 124/63 02/05/24 06:15 107 18 118/91 02/05/24 05:43 Nasal Cannula* 2 28 02/05/24 05:38 107 18 118/91 (100) 93 02/05/24 04:00 99.8 115 18 130/78 (95) 95 02/05/24 03:49 106 Lab Test 02/05/24 06:39 02/05/24 06:00 02/05/24 05:04 02/05/24 03:55 Range/Units Troponin I High Sensitivity 7 7 </=34 ng/L Urine Color Yellow Yellow Urine Clarity Cloudy H Clear Urine pH 5.5 5.0-9.0 Urine Specific [place] 1.028 1.001-1.035 Urine Protein 1+ H Negative Urine Ketones Trace Negative Urine Blood Negative Negative /uL Urine Nitrite Negative Negative Urine Bilirubin Negative Negative Urine Urobilinogen 2 H Negative mg/dL Urine Leukocyte Esterase 3+ Negative /uL Urine RBC 2 0 - 4 /hpf Urine WBC 74 0 - 5 /hpf Urine Squamous Epithelial Cells Few <5 /hpf Urine Bacteria None seen None Seen /hpf Urine Hyaline Casts Mod 0 - 2 /lpf Urine Granular Casts Many 0 /lpf Urine Mucus Few None Seen Urine Glucose Normal Normal mg/dL Prothrombin Time 11.8 9.3-11.8 sec Prothrombin Time INR 1.12 0.9-1.15 Activated Partial Thromboplast Time 29.6 24.5-34.5 SEC White Blood Count 12.0 H 4.4-10.8 10^3/uL Red Blood Count 5.10 4.0-5.20 10^6/uL Hemoglobin 18.8 H 12.2-16.2 g/dL Hematocrit 57.9 H 36.0-46.0 % Mean Corpuscular Volume 113.4 H 80.0-100.0 fL Mean Corpuscular Hemoglobin 36.8 H 28.0-32.0 pg Mean Corpuscular Hemoglobin Concent 32.5 32.0-36.0 g/dL Red Cell Distribution Width 15.2 H 11.8-14.3 % Platelet Count 216 140-450 10^3/uL Mean Platelet Volume 8.4 6.9-10.8 fL Neutrophils (%) (Auto) 88.6 H 37.0-80.0 % Lymphocytes (%) (Auto) 7.7 L 10.0-50.0 % Monocytes (%) (Auto) 3.0 0.0-12.0 % Eosinophils (%) (Auto) 0.3 0.0-7.0 % Basophils (%) (Auto) 0.4 0.0-2.0 % Neutrophils # (Auto) 10.6 H 1.6-8.6 10 ^3/uL Lymphocytes # (Auto) 0.9 0.4-5.4 10 ^3/uL Monocytes # (Auto) 0.4 0-1.3 10 ^3/uL Eosinophils # (Auto) 0 0-0.8 10 ^3/uL Basophils # (Auto) 0 0-0.2 10 ^3/uL Nucleated Red Blood Cells 0.0 % Sodium Level 135 L 136-145 mmol/L Potassium Level 3.3 L 3.5-5.1 mmol/L Chloride Level 98 98-107 mmol/L Carbon Dioxide Level 27 20-31 mmol/L Anion Gap 10 5-15 Blood Urea Nitrogen 17 9-23 mg/dL Creatinine 1.26 H 0.550-1.02 mg/dL Glomerular Filtration Rate Calc 45 >90 mL/min BUN/Creatinine Ratio 13.5 10.0-20.0 Serum Glucose 111 H 74-106 mg/dL Calcium Level 10.6 H 8.7-10.4 mg/dL Total Bilirubin 0.8 0.2-1.0 mg/dL Aspartate Amino Transferase (AST) 15 13-40 U/L Alanine Aminotransferase (ALT) 11 7-40 U/L Alkaline Phosphatase 104 46-116 U/L Total Protein 8.0 5.7-8.2 g/dL Albumin 4.7 3.2-4.8 g/dL Lipase 25 12-53 U/L Current Medications Medications (Trade) Dose Ordered Sig/Raquel Route Start Time Stop Time Status Last Admin Ondansetron HCl (Zofran) 4 mg ONCE ONCE IV 02/05/24 05:00 02/05/24 05:01 DC 02/05/24 06:15 Sodium Chloride 1,000 ml @ 1,000 mls/hr Q1H ONCE IVB 02/05/24 05:00 02/05/24 05:59 DC 02/05/24 06:10 Morphine Sulfate 4 mg ONCE ONCE IV 02/05/24 05:00 02/05/24 05:01 DC 02/05/24 06:15 Acetaminophen/ Hydrocodone Bitart ([place] 7.5/325MG Tab) 1 tab ONCE ONCE PO 02/05/24 09:00 02/05/24 09:01 DC 02/05/24 09:09 Aspirin 81 mg DAILY PO 02/05/24 10:00 02/05/24 10:14 Fluoxetine HCl (PROzac CAPSULE) 40 mg DAILY PO 02/05/24 10:00 02/05/24 10:14 Acetaminophen (Tylenol Tablet) 650 mg Q6HP PRN PO 02/05/24 09:30 02/05/24 15:33 Potassium Chloride (Klor-Con Tablet) 20 meq ONCE ONCE PO 02/05/24 09:45 02/05/24 09:52 DC 02/05/24 10:14 Ceftriaxone Sodium 50 ml @ 100 mls/hr ONCE ONCE IV 02/05/24 10:15 02/05/24 10:44 DC 02/05/24 10:25 Time of 1ST Reevaluation: 04:20 Reevaluation 1ST: Unchanged Time of 2ND Reevaluation: 05:30 Reevaluation 2ND: Improved Patient Education/Counseling: Diagnosis, Treatment, Prognosis Family Education/Counseling: No Family Present Additional Information I reviewed the following notes from patient's past medical encounters: The following tests were ordered, and results were reviewed by me:EKG, EKG, EKG, CBC, CMP, LIPASE, CT AB PEL WITH IV CON ONLY, PTPTT, UA I reviewed and agreed with the following test results read by other providers: CT AB PEL WITH IV CON ONLY I discussed treatment and results with medical personnel and: patient Departure 1 Departure Time of Disposition: 07:00 Impression: Primary Impression: Abdominal pain Additional Impression: Generalized weakness Disposition: ADMITTED INPATIENT Admit to: Med Surg Condition: Guarded Critical Care Note Critical Care Time?: No Stability Stability form required: No Heart Score Heart Score: Heart Score Response (Comments) Value History Slightly Suspicious 0 EKG Normal 0 Age >65 2 Risk Factors 1 or 2 risk factors 1 Troponin Normal limit 0 Total 3 I personally scribed for FRANK MCINTOSH MD ([email or web address]) on 02/05/24 at 04:14. Electronically submitted by Sun Caicedo ([email or web address]). I personally scribed for FRANK MCINTOSH MD ([email or web address]) on 02/05/24 at 04:57. Electronically submitted by Sun Caicedo ([email or web address]). FRANK MCINTOSH MD Feb 05, 2024 04:14
[2024-02-05 05:15] LABS: Basophils # (auto) 0 10 ^3/uL (0-0.2); Basophils % (auto) 0.4 % (0.0-2.0); Eosinophils # (auto) 0 10 ^3/uL (0-0.8); Eosinophils % (auto) 0.3 % (0.0-7.0); Hemoglobin 18.8 g/dL (12.2-16.2); Lymphocytes # (auto) 0.9 10 ^3/uL (0.4-5.4); Lymphocytes % (auto) 7.7 % (10.0-50.0); Mean Corpuscular Hemoglobin 36.8 pg (28.0-32.0); Mean Corpuscular Hgb Conc. 32.5 g/dL (32.0-36.0); Mean Corpuscular Volume 113.4 fL (80.0-100.0); Monocytes # (auto) 0.4 10 ^3/uL (0-1.3); Neutrophils # (auto) 10.6 10 ^3/uL (1.6-8.6); Neutrophils % (auto) 88.6 % (37.0-80.0); Platelet Count (auto) 216 10^3/uL (140-450); Red Cell Distribution Width 15.2 % (11.8-14.3)
[2024-02-05 05:20] LABS: Hematocrit 57.9 % (36.0-46.0)
[2024-02-05 05:26] LABS: Alanine Aminotransferase 11 U/L (7-40); Albumin 4.7 g/dL (3.2-4.8); Alkaline Phosphatase 104 U/L (46-116); Anion Gap 10 (5-15); Aspartate Aminotransferase 15 U/L (13-40); BUN/Creatinine Ratio 13.5 (10.0-20.0); Bilirubin, Total 0.8 mg/dL (0.2-1.0); Blood Urea Nitrogen 17 mg/dL (9-23); Carbon Dioxide 27 mmol/L (20-31); Chloride 98 mmol/L (98-107); Lipase 25 U/L (12-53)
[2024-02-05 05:27] LABS: Calcium 10.6 mg/dL (8.7-10.4); Glucose 111 mg/dL (74-106); Potassium 3.3 mmol/L (3.5-5.1); Sodium 135 mmol/L (136-145)
[2024-02-05 05:35] LABS: INR 1.12 (0.9-1.15); Partial Thromboplastin Time 29.6 SEC (24.5-34.5); Prothrombin Time 11.8 sec (9.3-11.8)
[2024-02-05] MEDS: IOHEXOL 300 MG/ML 100ML BOTTLE IJ ONE (05:54)
[2024-02-05] MEDS: SODIUM CHLORIDE 0.9% 1,000 ML IVB ONE (06:10)
[2024-02-05] MEDS: MORPHINE SULFATE 4 MG/ML SYR/VIAL IV ONE (06:15)
[2024-02-05] MEDS: ONDANSETRON HCL 4 MG/2 ML VIAL IV ONE (06:15)
--- NOTE | 2024-02-05 06:16 | DVH ---
CLINICAL INFORMATION: 73 years old, Female; upper abd pain. TECHNIQUE: Axial CT images of the abdomen and pelvis were obtained without IV contrast. Coronal and sagittal reformatted images were obtained, reviewed, and stored. Evaluation of the parenchymal organs is limited without IV contrast. Evaluation of the bowel and mesentery is limited without oral contra st. All CT scans at this medical facility are performed using dose modulation techniques as appropria te to a performed exam including the following: Automated exposure control was utilized; adjustment o f the MA and/or KV according to patient size; and use of iterative reconstruction technique. CTDIvol = 8.65 mGy DLP = 434.53 mGy-cm COMPARISON: None FINDINGS: Lung bases: Atelectasis in the lung bases. Focal consolidation in the left lower lobe. Fibrotic lee es in the lung bases with reticulation and mild traction bronchiectasis. Liver: Hepatic steatosis. Biliary: Cholecystectomy. Mild prominence of the common bile duct measuring up to 0.9 cm in diameter, may be seen after cholecystectomy due to reservoir effect. Spleen: Lobulated contour of the spleen, otherwise unremarkable. Pancreas: Grossly unremarkable in its noncontrast enhanced appearance. Adrenal glands: Unremarkable. No mass. Kidneys: No hydronephrosis. Small cysts in both kidneys. Aorta/Vascular: Scattered atherosclerotic calcification. No abdominal aortic aneurysm. Retroperitoneum: No mass or lymphadenopathy. Bowel/mesentery: Nonspecific nondilated fluid-filled small bowel loops. No small bowel obstruction. A ppendix is not visualized. Pelvic organs: Uterus is surgically absent. Bladder: Unremarkable. No mass. Abdominal wall: No mass or hernia. Calcifications in the gluteal subcutaneous tissues, likely dystrop hic calcifications. Bones: No acute fracture or suspicious intraosseous lesion. Chronic appearing mild compression deform ities of the L2 and L4 vertebral bodies. IMPRESSION: 1. Postsurgical changes of prior cholecystectomy with mild prominence of the common bile duct, which may be seen after cholecystectomy due to reservoir effect. Correlate with clinical findings. 2. Hepatic steatosis. 3. Nonspecific nondilated fluid-filled small bowel loops. Findings may be seen with ileus or enterit is in the appropriate clinical setting. No small bowel obstruction. 4. Additional findings as described above.
[2024-02-05 06:37] LABS: Urine Bacteria None Seen /hpf (None Seen)
[2024-02-05 07:04] LABS: Urine Blood Negative /uL (Negative); Urine Color Yellow (Yellow); Urine Hyaline Cast MOD /lpf (0 - 2); Urine Mucus FEW (None Seen); Urine Protein, UAD 1+ (Negative); Urine Specific Gravity 1.028 (1.001-1.035); Urine Urobilinogen 2 mg/dL (Negative); Urine WBC 74 /hpf (0 - 5); Urine pH 5.5 (5.0-9.0)
[2024-02-05 07:08] LABS: Urine Clarity Cloudy (Clear)
[2024-02-05] MEDS: HYDROcodone-ACET 7.5/325MG TAB PO ONE (09:09)
[2024-02-05] MEDS ORDERED: DOCUSATE SOD 100 MG CAP PO PRN (09:30)
[2024-02-05] MEDS ORDERED: ONDANSETRON HCL 4 MG/2 ML VIAL IV PRN (09:30)
[2024-02-05] MEDS ORDERED: hydrALAZINE HCL 20 MG/ML VL IV PRN (09:30)
[2024-02-05] MEDS ORDERED: HYDROcodone-ACET 5/325MG TAB PO PRN (09:30)
[2024-02-05] MEDS ORDERED: MORPHINE SULFATE INJ 2 MG/ml SYRG IV PRN ×2 (09:30→10:30)
[2024-02-05] MEDS: METOPROLOL TARTRATE 25 MG TAB PO SCH (10:00)
[2024-02-05] MEDS: SODIUM CHLORIDE 0.9% 1,000 ML IV SCH (10:04)
[2024-02-05] MEDS: ASPirin 81 mg TAB PO SCH (10:14)
[2024-02-05] MEDS: POTASSIUM CHL 20 Meq TABLET PO ONE (10:14)
[2024-02-05] MEDS: FLUoxetine HCL 20 MG CAP PO SCH (10:14)
[2024-02-05 10:16] VITALS: PULSE 89; RESP 18; O2SAT 94
[2024-02-05] MEDS: cefTRIAXone 1GM/50ML D5W 50 ML IV ONE (10:25)
[2024-02-05] MEDS ORDERED: NITROGLYCERIN 0.4 MG SL TAB SL PRN (10:30)
--- NOTE | 2024-02-05 10:32 | DVHHP2 ---
History of Present Illness Reason for Visit: Polycythemia vera History of Present Illness The patient is a 73-year-old female with past medical history of Coronary artery disease, hypertension, blood cancer, depression, hyperlipidemia, and ME who presented to [facility] ED with complaint of epigastric pain. Patien t reports symptoms progressively get worse with nausea, vomiting, chest pressure, described pain as dull/sharp in nature, radiates to her back, rating pain 8/10 numeric scale, worse with inhalation that prompted this visit. Patient reports she had blood cancer polycythemia vera and has been followed by specialist at [facility]. Patient was seen and evaluated in the ED, laboratory data shows WBC 12.0, hemoglobin 18.8, hematocrit 57.9, platelets 216, sodium 135, potassium 3.3, BUN 17, creatinine 1.26, GFR 45, glucose 111, calcium 10.6, troponin 7, lipase 25. Abdomen/pelvis CT revealing postsurgical changes of prior cholecystectomy with mild prominence of the common bile duct; nonspecific nondilated fluid-filled small bowel loops; which may be seen with ileus or enteritis in the appropriate clinical setting, no small bowel obstruction. Please see medication orders section in the computer. On my assessment, patient denies chest pain, no headache, no dizziness, no diaphoresis, no shortness of breaths, no nausea, no vomiting at this moment, no fever, no chills. Patient was admitted for further evaluation and medical management. Past Medical History CAD, Cancer of blood, HTN, ME, hyperlipidemia, depression. Past Surgical History Cholecystectomy, , Hysterectomy, Tonsillectomy Family History Reviewed, noncontributory to the management of this case. Past Social History The patient lives at home, denies smoking, alcohol or illicit drugs abuse. Review of Systems Constitutional: No: Fever, Chills, Sweats, Weakness, Malaise, Other Eyes: No: Pain, Vision change, Conjunctivae inflammation, Eyelid inflammation, Other, Redness ENT: No: Ear pain, Ear discharge, Nose pain, Nose discharge, Nose congestion, Mouth pain, Mouth swelling, Throat pain, Throat swelling, Other Respiratory: No: Cough, Dry, Shortness of breath, SOB with excertion, Wheezing, Hemoptysis, Pleuritic Pain, Sputum, Wheezing, Other Cardiovascular: Chest Pain; No: Palpitations, Orthopnea, Paroxysmal Noc. Dyspnea, Edema, Lt Headedness, Other Gastrointestinal: Nausea, Vomiting, Abdominal Pain (Epigastric); No: Diarrhea, Constipation, Melena, Hematochezia, Other Genitourinary: No Dysuria, No Frequency, No Incontinence, No Hematuria, No Retention, No Other Musculoskeletal: No: other, neck pain, shoulder pain, arm pain, back pain, hand pain, leg pain, foot pain Skin: No: Rash, Lesions, Jaundice, Bruising, Other Neurological: No: Weakness, Numbness, Incoordination, Change in speech, Confusion, Seizures, Other Allergies: Coded Allergies: NO KNOWN ALLERGIES (Unverified , 10/01/20) Medications Current Medications Medications Dose Ordered Sig/Raquel Route Start Time Stop Time Status Last Admin Dose Admin Aspirin 81 mg DAILY PO 02/05/24 10:00 02/05/24 10:14 81 MG Atorvastatin Calcium 20 mg HS PO 02/05/24 22:00 Hydralazine HCl 10 mg Q6HP PRN IV 02/05/24 09:30 Metoprolol Tartrate 25 mg BID PO 02/05/24 10:00 Fluoxetine HCl 40 mg DAILY PO 02/05/24 10:00 02/05/24 10:14 40 MG Sodium Chloride 1,000 ml @ 60 mls/hr [id number] IV 02/05/24 09:30 Acetaminophen/ Hydrocodone Bitart 1 tab Q4HP PRN PO 02/05/24 09:30 Ondansetron HCl 4 mg Q4HP PRN IV 02/05/24 09:30 Docusate Sodium 100 mg BIDPRN PRN PO 02/05/24 09:30 Acetaminophen 650 mg Q6HP PRN PO 02/05/24 09:30 Morphine Sulfate 2 mg Q4HPRN PRN IV 02/05/24 09:30 Ceftriaxone Sodium 50 ml @ 100 mls/hr DAILY@09 IV 02/06/24 09:00 Exam Vital Signs Vital Signs Date Time Temp Pulse Resp B/P (MAP) Pulse Ox O2 Delivery O2 Flow Rate FiO2 02/05/24 10:16 89 18 94 Room Air* 0 21 02/05/24 10:15 97.8 93/45 (61) 97.8 General Appearance: Alert, Oriented X3, Cooperative, No acute distress HEENT: Atraumatic, PERRLA, EOMI, Mucous membr. moist/pink Respiratory: Clear to auscultation, Normal air movement Cardiovascular: Regular rate, Normal S1, Normal S2, No murmurs Abdominal: Normal bowel sounds, Soft, No hepatospenomegaly, No masses, Other (Reports tendedness) Extremities: No clubbing, No cyanosis, No edema, Normal pulses, No tenderness/swelling Skin: No rashes, No breakdown, No significant lesion Neuro: Normal gait, Normal speech, Strength at 5/5 X4 ext, Normal tone, Sensation intact, Cranial nerves 3-12 NL, Reflexes 2+ Psych/Mental Status: Mental status NL, Mood NL Labs/Xrays Labs Test 02/05/24 06:39 02/05/24 06:00 02/05/24 05:04 02/05/24 03:55 Range/Units Troponin I High Sensitivity 7 </=34 ng/L Urine Color Yellow Yellow Urine Clarity Cloudy H Clear Urine pH 5.5 5.0-9.0 Urine Specific [place] 1.028 1.001-1.035 Urine Protein 1+ H Negative Urine Ketones Trace Negative Urine Blood Negative Negative /uL Urine Nitrite Negative Negative Urine Bilirubin Negative Negative Urine Urobilinogen 2 H Negative mg/dL Urine Leukocyte Esterase 3+ Negative /uL Urine RBC 2 0 - 4 /hpf Urine WBC 74 0 - 5 /hpf Urine Squamous Epithelial Cells Few <5 /hpf Urine Bacteria None seen None Seen /hpf Urine Hyaline Casts Mod 0 - 2 /lpf Urine Granular Casts Many 0 /lpf Urine Mucus Few None Seen Urine Glucose Normal Normal mg/dL Prothrombin Time 11.8 9.3-11.8 sec Prothrombin Time INR 1.12 0.9-1.15 Activated Partial Thromboplast Time 29.6 24.5-34.5 SEC White Blood Count 12.0 H 4.4-10.8 10^3/uL Red Blood Count 5.10 4.0-5.20 10^6/uL Hemoglobin 18.8 H 12.2-16.2 g/dL Hematocrit 57.9 H 36.0-46.0 % Mean Corpuscular Volume 113.4 H 80.0-100.0 fL Mean Corpuscular Hemoglobin 36.8 H 28.0-32.0 pg Mean Corpuscular Hemoglobin Concent 32.5 32.0-36.0 g/dL Red Cell Distribution Width 15.2 H 11.8-14.3 % Platelet Count 216 140-450 10^3/uL Mean Platelet Volume 8.4 6.9-10.8 fL Neutrophils (%) (Auto) 88.6 H 37.0-80.0 % Lymphocytes (%) (Auto) 7.7 L 10.0-50.0 % Monocytes (%) (Auto) 3.0 0.0-12.0 % Eosinophils (%) (Auto) 0.3 0.0-7.0 % Basophils (%) (Auto) 0.4 0.0-2.0 % Neutrophils # (Auto) 10.6 H 1.6-8.6 10 ^3/uL Lymphocytes # (Auto) 0.9 0.4-5.4 10 ^3/uL Monocytes # (Auto) 0.4 0-1.3 10 ^3/uL Eosinophils # (Auto) 0 0-0.8 10 ^3/uL Basophils # (Auto) 0 0-0.2 10 ^3/uL Nucleated Red Blood Cells 0.0 % Sodium Level 135 L 136-145 mmol/L Potassium Level 3.3 L 3.5-5.1 mmol/L Chloride Level 98 98-107 mmol/L Carbon Dioxide Level 27 20-31 mmol/L Anion Gap 10 5-15 Blood Urea Nitrogen 17 9-23 mg/dL Creatinine 1.26 H 0.550-1.02 mg/dL Glomerular Filtration Rate Calc 45 >90 mL/min BUN/Creatinine Ratio 13.5 10.0-20.0 Serum Glucose 111 H 74-106 mg/dL Calcium Level 10.6 H 8.7-10.4 mg/dL Total Bilirubin 0.8 0.2-1.0 mg/dL Aspartate Amino Transferase (AST) 15 13-40 U/L Alanine Aminotransferase (ALT) 11 7-40 U/L Alkaline Phosphatase 104 46-116 U/L Total Protein 8.0 5.7-8.2 g/dL Albumin 4.7 3.2-4.8 g/dL Lipase 25 12-53 U/L PATIENT: RAMESH LEHMAN LACCT: [id number] UNIT: [id number] : 1950 LOC: ER ROOM / BED: / AGE / SEX: 73 / F ADM STATUS: REG ER SERVICE [id number] ORDERING PHYSICIAN: FRANK MCINTOSH MD PROCEDURE(s): ABPLIV - CT AB PEL WITH IV CON ONLY REASON: upper abd pain ORDER NUMBER(s): [id number], ACCESSION NUMBER(s): [id number] CLINICAL INFORMATION: 73 years old, Female; upper abd pain. TECHNIQUE: Axial CT images of the abdomen and pelvis were obtained without IV contrast. Coronal and sagittal reformatted images were obtained, reviewed, and stored. Evaluation of the parenchymal organs is limited without IV contrast. Evaluation of the bowel and mesentery is limited without oral contrast. All CT scans at this medical facility are performed using dose modulation techniques as appropriate to a performed exam including the following: Automated exposure control was utilized; adjustment of the MA and/or KV according to patient size; and use of iterative reconstruction technique. CTDIvol = 8.65 mGy DLP = 434.53 mGy-cm COMPARISON: None FINDINGS: Lung bases: Atelectasis in the lung bases. Focal consolidation in the left lower lobe. Fibrotic changes in the lung bases with reticulation and mild traction bronchiectasis. Liver: Hepatic steatosis. Biliary: Cholecystectomy. Mild prominence of the common bile duct measuring up to 0.9 cm in diameter, may be seen after cholecystectomy due to reservoir effect. Spleen: Lobulated contour of the spleen, otherwise unremarkable. Pancreas: Grossly unremarkable in its noncontrast enhanced appearance. Adrenal glands: Unremarkable. No mass. Kidneys: No hydronephrosis. Small cysts in both kidneys. Aorta/Vascular: Scattered atherosclerotic calcification. No abdominal aortic aneurysm. Retroperitoneum: No mass or lymphadenopathy. Bowel/mesentery: Nonspecific nondilated fluid-filled small bowel loops. No small bowel obstruction. Appendix is not visualized. Pelvic organs: Uterus is surgically absent. Bladder: Unremarkable. No mass. Abdominal wall: No mass or hernia. Calcifications in the gluteal subcutaneous tissues, likely dystrophic calcifications. Bones: No acute fracture or suspicious intraosseous lesion. Chronic appearing mild compression deformities of the L2 and L4 vertebral bodies. IMPRESSION: 1. Postsurgical changes of prior cholecystectomy with mild prominence of the common bile duct, which may be seen after cholecystectomy due to reservoir effect. Correlate with clinical findings. 2. Hepatic steatosis. 3. Nonspecific nondilated fluid-filled small bowel loops. Findings may be seen with ileus or enteritis in the appropriate clinical setting. No small bowel obstruction. 4. Additional findings as described above. Assessment/Plan Assessment/Plan Polycythemia vera Chest pain Enteritis Abdominal pain Nausea and vomiting Urinary tract infection Leukocytosis, unspecified Generalized weakness Plan 1. Admit to telemetry unit 2. Breathing treatment 3. Pain control management 4. IV antibiotic management 5. Management of fluids and electrolytes 6. Consultation for hospitalist 7. Diagnostic test abdomen/pelvis CT 8. DVT prophylaxis--on aspirin 9. Repeat labs CBC, CMP in a.m. 10. Home medication reviewed and reconciled 11. Continue with current medical management 12. Treatment plan discussed with patient/daughter and RN. Patient/daughter verbalized understanding. Plan discussed with: Patient, Daughter (At bedside), Other (RN) My Orders Orders - NICKI ALMENDAREZ DNP Procedure Category Date Status Time Aspirin Tablet PHA 02/05/24 In Process 10:00 Atorvastatin (Lipitor) PHA 02/05/24 In Process 22:00 Hydralazine Injection PHA 02/05/24 In Process (Apresoline Inject 09:30 Metoprolol Tartrate PHA 02/05/24 In Process Tablet (Lopressor Ta 10:00 Fluoxetine Capsule PHA 02/05/24 In Process (Prozac Capsule) 10:00 Allergies AB 02/05/24 In Process 09:27 Code Status CODE 02/05/24 Transmitted 09:27 Sodium Chloride 0.9% PHA 02/05/24 In Process 09:30 Oxygen Per Hour RT 02/05/24 Transmitted 09:27 Hydrocodone-Acet PHA 02/05/24 In Process 5/325mg Tab ([place] 09:30 Ondansetron Hcl PHA 02/05/24 In Process (Zofran) 09:30 Docusate Sodium PHA 02/05/24 In Process Capsule (Colace 09:30 Fall Risk Precautions AB 02/05/[address] 09:27 Complete Blood Count LAB 02/06/24 Verified 04:00 Comprehensive LAB 02/06/24 Verified Metabolic Panel 04:00 Cardiac DIET 02/05/24 Transmitted Diet-2gna,Lofat,Lochol Breakfast Condition: Serious AB 02/05/24 In Process 09:27 Acetaminophen Tablet PHA 02/05/24 In Process (Tylenol Tablet) 09:30 Morphine Sulfate PHA 02/05/24 In Process Injection 09:30 Sequential AB 02/05/24 In Process Compression Device Urine Bacterial YEMI 02/05/24 Logged Culture 10:01 Ceftriaxone 1gm/50ml PHA 02/06/24 In Process D5w (Rocephin) 09:00 Ceftriaxone 1gm/50ml PHA 02/05/24 In Process D5w (Rocephin) 10:15 Admit ADMIT 02/05/24 Verified 10:28 Nitroglycerin [facility] 02/05/24 Verified Sublingual (Ntrostat 10:30 Morphine Sulfate PHA 02/05/24 Verified Injection 10:30 Notify Md Of Changes [facility] 02/05/24 Verified From Base 10:28 Set Up [employer] For [facility] 02/05/24 Verified 24 Hours 10:28 Emergency Dysrhythmia [facility] 02/05/24 Verified Protocol 10:28 Rhythm Strips Once [facility] 02/05/24 Verified Every Shift 10:28 Oxygen By Nasal RT 02/05/24 Verified Cannula 10:28 Problem List: (1) Polycythemia vera (2) Chest pain (3) Enteritis (4) Abdominal pain (5) Nausea and vomiting (6) Urinary tract infection (7) Leukocytosis, unspecified (8) Generalized weakness Date of Service: Feb 05, 2024 Billing Provider: NICKI ALMENDAREZ DNP Common Visit Codes: [id number] INP/OBS CARE (HIGH) NICKI ALMENDAREZ DNP Feb 05, 2024 10:32
[2024-02-05] MEDS: metroNIDAZOLE 500MG/100ML 100 ML IV SCH (14:00)
[2024-02-05 15:15] VITALS: BP 137/78; PULSE 109; RESP 16; TEMP 102.6; O2SAT 95
[2024-02-05] MEDS: ACETAMINOPHEN 325 MG TAB PO PRN (15:33)
[2024-02-05 16:33] VITALS: TEMP 98.2
[2024-02-05] MEDS ORDERED: ATORVASTATIN 20 MG TAB PO SCH (22:00)
[2024-02-06] MEDS ORDERED: cefTRIAXone 1GM/50ML D5W 50 ML IV SCH (09:00)
== END 2024-02-05 16:49 | disposition left against medical advice (07) | DRG 392 ==
LOC: ER 03:42 → TELE 10:28
PROVIDERS: ADMIT Nurse Practitioner Family; ATTEND Nurse Practitioner Family
DX: K52.9 Noninfective gastroenteritis and colitis, unspecified (principal); N39.0 Urinary tract infection, site not specified; D45 Polycythemia vera; I25.10 Atherosclerotic heart disease of native coronary artery without angina pectoris; E78.5 Hyperlipidemia, unspecified; F32.A Depression, unspecified; I10 Essential (primary) hypertension; Z53.29 Procedure and treatment not carried out because of patient's decision for other reasons; Z79.82 Long term (current) use of aspirin; Z79.891 Long term (current) use of opiate analgesic; Z79.899 Other long term (current) drug therapy; Z90.49 Acquired absence of other specified parts of digestive tract; Z90.710 Acquired absence of both cervix and uterus
CPT/HCPCS: 36415; 74177; 80053; 81001; 83690; 84484; 85025; 85610; 85730; 87086; 93005; G0378; J2405